=== PATIENT | female | born 1970 | race Caucasian/White ===

== ENCOUNTER 2020-09-22 09:00 | Emergency (ER) | payer BC ==
--- OUTSIDE RECORDS SUMMARY | 2020-09-22 09:03 | XMS REPORT | Continuity of Care Document ---
:1970 Author Organization [facility] t Address [address] [place] [address] Care Team Providers Name Role Phone Unavailable Unavailable Unavailable Problems This patient has no known problems. Allergies, Adverse Reactions, Alerts This patient has no known allergies or adverse reactions. Medications Ordered Filled Start Stop Current Ordering Indication Dosage Frequency Signature Comments Components Source Medication Medication Date Date Medication? Clinician (SIG) Name Name Praluent Praluent 2020-0 2020- No Na Guadalupe as [facility] 7[facility]27 10-25 [facility] Neomycin-Po Neomycin-Po 0 Yes Na Guadalupe [address] [facility] lymyxin-HC lymyxin-HC 2-20 into [place] - 00:00: affected [facility] 00 ear [facility] Augmentin Augmentin 0 Yes Na Guadalupe [address] [facility] 2-20 [facility] Advair Advair Yes Na Guadalupe INHALE [address] [facility] Diskus Diskus PUFF BY [facility] - MOUTH 2 [facility] TIMES l DAILY Outpat[facility] ent Clinics Metoprolol Metoprolol Yes Na Guadalupe [address] [facility] Tartrate Tartrate with food Mercedes kes - [facility] Ventolin Ventolin Yes Na Guadalupe [address] [facility] HFA HFA needed [facility] Fish Oil Fish Oil Yes Na Guadalupe [address] [facility] Aspirin Aspirin Yes Na Guadalupe [address] [facility] Lisinopril Lisinopril Yes Na Guadalupe [address] [facility] Singulair Singulair Yes Na Guadalupe [address] [facility] Yes Na Guadalupe [address] [facility] Sodium Sodium [facility] Plavix Plavix Yes Na Guadalupe [address] [facility] Bactrim DS Bactrim DS Yes Na Guadalupe [address] [facility] Vitamin Vitamin Yes Na Guadalupe [address] B-12 B-12 [facility] Vitamin D Vitamin D Yes Na Guadalupe [address] [facility] (Ergocalcif (Ergocalcif L ukes - nicho) nicho) [facility] Humira Humira Yes Na Guadalupe 0.[address] [facility] Dymista Dymista Yes Na Guadalupe [address] [facility] Nitroglycer Nitroglycer Yes Na Guadalupe not [facility] in in defined [facility] Clobetasol Clobetasol Yes Na Guadalupe [address] [facility] Propionate Propionate applicatio [facility] n to [facility] affected l area Outpati ent Clinics Repatha Repatha 2020- No Na Guadalupe INJECT [address] SureClick SureClick 06-30 [facility] - 00:00 S [facility] :00 SUBCUTANEO l USLY ONCE Outpati EVERY 2 ent WEEKS Clinics Immunizations Ordered Filled Immunization Date Status Comments [facility] e Immunization Name Name Afluria single dose Afluria single dose 2019-02-[address] [facility]00 [facility] Procedures This patient has no known procedures. Encounters Start End Encounter Admission Attending Care Care Encounter Source Date/Time Date/Time Type Type Clinicians Facility Department ID 2020-08-18 2020-08-18 Outpatient [facility] [id number] [facility] 2020-08-15 2020-08-15 Outpatient [facility] [id number] [facility] 2020-08-15 2020-08-15 Outpatient [facility] [id number] [facility] 2020-08-14 2020-08-14 Outpatient [facility] [id number] [facility] 2020-07-21 2020-07-21 Outpatient [facility] [id number] [facility] 2020-04-07 2020-04-07 Outpatient [facility] [id number] [facility] 2020-04-07 2020-04-07 Outpatient [facility] [id number] [facility] 2020-01-01 2020-01-01 Outpatient [facility] [id number] [facility] 2019-10-01 2019-10-01 [facility] [id number] [facility] 15:20:00 15:20:00 t [place] [employer] - [facility] Medicine Outpati ent Clinics 2019-08-28 2019-08-28 [facility] [id number] [address] 10:07:00 10:07:00 t [place] [employer] - Drive [facility] Out[facility] Clin[facility] 2019-06-07 2019-06-07 [facility] [id number] [address] 15:40:00 15:40:00 t [place] [employer] - Drive [facility] Out[facility] Clin[facility] 2019-03-21 2019-03-21 [facility] [id number] 14:54:00 14:54:00 t [place] [employer] - Drive [facility] Out[facility] Clinics 2019-02-05 2019-02-05 [facility] [id number] 15:00:00 15:00:00 t N[place] [employer] Luke s - Drive [facility] Medicine l Medicine Outpati ent Clinics 2019-01-06 2019-01-06 [facility] [id number] 16:28:00 16:28:00 t [place] [employer] s - Drive [facility] Medicine Outpati ent Clinics 2018-11-29 2018-11-29 [facility] [id number] 16:26:00 16:26:00 t [place] [employer] s - Drive [facility] Medicine l Medicine Outpati ent Clinics 2018-10-27 2018-10-27 [facility] [id number] 14:20:00 14:20:00 t [place] [employer] - Drive [facility] Medicine l Medicine Outpati ent Clinics 2018-10-18 2018-10-18 [facility] [id number] [facility] 11:28:00 11:28:00 t [place] [employer] - Drive [facility] Medicine Outpati ent Clinics 2018-04-14 2018-04-14 [facility] [id number] 08:00:00 08:00:00 t [place] [employer] s - Drive [facility] Medicine Outpati ent Clinics 2018-02-01 2018-02-01 [facility] [id number] 11:30:00 11:30:00 t [place]is [employer] [employer] [place] s - Drive [facility] Medicine Outpati ent Clinics 2017-12-18 2017-12-18 [facility] [id number] 10:24:00 10:24:00 t [place] [employer] - Drive [facility] Medicine Medicine Outpati ent Clinics 2017-11-25 2017-11-25 [facility] [id number] 10:45:00 10:45:00 t [place] [employer] s - Drive [facility] Medicine Outpati ent Clinics Results This patient has no known results.
[2020-09-22] MEDS ORDERED: CYCLOBENZAPRINE 10 MG TAB ONE (10:07)
[2020-09-22] MEDS ORDERED: KETOROLAC 30 MG/ML INJ ONE (10:08)
--- NOTE | 2020-09-22 10:08 | RAD REPORT ---
EXAM DESCRIPTION: RAD - Shoulder Right 2 View - 09/22/2020 10:02 am CLINICAL HISTORY: PAIN COMPARISON: No comparisons FINDINGS: No right shoulder fracture or dislocation. No significant focal degenerative changes. IMPRESSION: Unremarkable right shoulder.
--- NOTE | 2020-09-22 10:41 | ER ---
Nurse's Notes [facility] Name: Muna Zaidi Age: 49 yrs Sex: Female : 1970 Arrival Date: 09/22/2020 Time: 09: Bed DX2 Private MD: Angel Matthews Diagnosis: Pain in right shoulder Presentation: 09/22 09:29 Chief complaint: Patient states: Right shoulder pain x 1 week, intermittent, denies jl7 trauma, reports PCP told her to come here for x-rays. Coronavirus screen: Client denies travel out of the [place] in the last 14 days. At this time, the client does not indicate any symptoms associated with coronavirus-19. Ebola Screen: No symptoms or risks identified at this time. Initial Sepsis Screen: Does the patient meet any 2 criteria? No. Patient's initial sepsis screen is negative. Does the patient have a suspected source of infection? No. Patient's initial sepsis screen is negative. Risk Assessment: Do you want to hurt yourself or someone else? Patient reports no desire to harm self or others. Onset of symptoms was September 16, 2020. 09:29 Method Of Arrival: Ambulatory 7 09:29 Acuity: [place]IN[place] 4 jl7 Triage Assessment: 09:31 General: Appears in no apparent distress. uncomfortable, Behavior is calm, cooperative, jl7 appropriate for age. Pain: Complains of pain in anterior aspect of right shoulder Pain radiates to posterior aspect of right shoulder Pain currently is 3 out of 10 on a pain scale. at worst was 9 out of 10 on a pain scale. Quality of pain is described as throbbing, Pain began x 1 week Is intermittent. Neuro: Level of Consciousness is awake, alert, obeys commands, Oriented to person, place, time, situation. Cardiovascular: Denies chest pain, nausea, palpitations, shortness of breath, Patient's skin is warm and dry. Respiratory: Airway is patent Respiratory effort is even, unlabored, Respiratory pattern is regular, symmetrical. Derm: Skin is pink, warm \T\ dry. Musculoskeletal: Swelling absent Reports pain in anterior aspect of right shoulder. 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 - Social history:: Smoking status: Patient reports the use of cigarette tobacco products. Screenin:30 Abuse screen: Denies threats or abuse. Denies injuries from another. Nutritional jl7 screening: No deficits noted. Tuberculosis screening: No symptoms or risk factors identified. Fall Risk None identified. Assessment: 09:30 General: See triage assessment. jl7 10:30 Reassessment: Patient appears in no apparent distress at this time. No changes from jl7 previously documented assessment. Patient and/or family updated on plan of care and expected duration. Pain level reassessed. Patient is alert, oriented x 3, equal unlabored respirations, skin warm/dry/pink. Vital Signs: 09:29 BP 163 / 87; Pulse 87; Resp 17; Temp 98.6; Pulse Ox 100% on R/A; Weight 63.5 kg; Height jl7 5 ft. 3 in. (160.02 cm); Pain 3/10; 09:29 Body Mass Index 24.80 (63.50 kg, 160.02 cm) jl7 ED Course: 09:09 Patient arrived in ED. am2 09:10 Angel Matthews MD is Private Physician. am2 09:22 Bhavin Paul, DIOGENES is Primary Nurse. jl7 09:30 Patient has correct armband on for positive identification. Placed in gown. Bed in low jl7 position. Call light in reach. Side rails up X 1. 09:30 No provider procedures requiring assistance completed. Patient did not have IV access jl7 during this emergency room visit. 09:31 Triage completed. jl7 09:31 Arm band placed on right wrist. jl7 09:32 Kenny Rothman NP is PHCP. pm1 09:32 Carroll Diop MD is Attending Physician. pm1 09:39 Geoffrey Govea MD is Attending Physician. pm1 10:02 Shoulder Right (2 View) XRAY In Process Unspecified. EDMS Administered Medications: 09:51 Drug: Flexeril (cyclobenzaprine) 10 mg Route: PO; jl7 11:32 Follow up: Response: No adverse reaction jl7 09:51 Drug: Ketorolac 30 mg Route: IM; Site: left deltoid; jl7 11:32 Follow up: Response: No adverse reaction jl7 Outcome: 10:40 Discharge ordered by . pm1 11:33 Discharged to home ambulatory. jl7 11:33 Condition: stable 11:33 Discharge instructions given to patient, Instructed on discharge instructions, follow up and referral plans. medication usage, Demonstrated understanding of instructions, follow-up care, medications, Prescriptions given X 3. 11:33 Patient left the ED. jl7 Signatures: Dispatcher [employer] EDKenny Leon NP SYSTEM OPERATOR pm1 Bhavin Paul RN RN jl7 Yasmin Koehler am2
--- NOTE | 2020-09-22 10:41 | EDPHYS ---
Physician Documentation [facility] Name: Muna Zaidi Age: 49 yrs Sex: Female : 1970 Arrival Date: 09/22/2020 Time: 09:09 Bed DX2 Private MD: Angel Matthews ED Physician Geoffrey Govea HPI: 09/22 09:45 This 49 yrs old Female presents to ER via Ambulatory with complaints of Right pm1 Shoulder Pain. 09:45 The patient or guardian complains of pain, that is acute. The complaints affect the pm1 anterior aspect of right shoulder and posterior aspect of right shoulder. Context: The problem was sustained at home, resulted from injury while sleeping. Patient reports a popping sensation to right shoulder while positioning while sleeping and then she woke up with pain to the shoulder. Onset: The symptoms/episode began/occurred 1 week(s) ago. Treatment prior to arrival includes: over the counter medications, Heating pad. Modifying factors: The symptoms are alleviated by positioning arm. the symptoms are aggravated by Keeping right arm in one position for an extended time. Associated signs and symptoms: Pertinent negatives: decreased range of motion, deformity, numbness, swelling. Severity of symptoms: in the emergency department the symptoms are unchanged. The patient has not recently seen a physician, Patient attempted to schedule an appointment with her PCP but was unable to get an appointment. Was instructed to report to the ER for imaging. 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 - Social history:: Smoking status: Patient reports the use of cigarette tobacco products. ROS: 09:45 Constitutional: Negative for fever, chills, and weight loss, Cardiovascular: Negative pm1 for chest pain, palpitations, and edema, Respiratory: Negative for shortness of breath, cough, wheezing, and pleuritic chest pain, Abdomen/GI: Negative for abdominal pain, nausea, vomiting, diarrhea, and constipation, Back: Negative for injury and pain. 09:45 Skin: Negative for injury, rash, and discoloration, Neuro: Negative for headache, weakness, numbness, tingling, and seizure. 09:45 MS/extremity: Positive for pain, of the posterior aspect of right shoulder and anterior aspect of right shoulder, Negative for decreased range of motion, deformity. 09:45 All other systems are negative. Exam: 09:45 Constitutional: This is a well developed, well nourished patient who is awake, alert, pm1 and in no acute distress. 09:45 Head/Face: Normocephalic, atraumatic. 09:45 Chest/axilla: Normal chest wall appearance and motion. Nontender with no deformity. No lesions are appreciated. 09:45 Back: No spinal tenderness. No costovertebral tenderness. Full range of motion. Skin: Warm, dry with normal turgor. Normal color with no rashes, no lesions, and no evidence of cellulitis. 09:45 Neck: External neck: tenderness, that is mild, of the right trapezius, C-spine: vertebral tenderness, is not appreciated. 09:45 Cardiovascular: Rate: normal, Rhythm: regular, Pulses: no pulse deficits are appreciated, Heart sounds: normal, normal S1and S2. 09:45 Respiratory: Exam negative for acute changes, respiratory distress, shortness of breath, Breath sounds: are clear throughout. 09:45 Abdomen/GI: Inspection: abdomen appears normal, Palpation: abdomen is soft and non-tender, in all quadrants. 09:45 Musculoskeletal/extremity: Extremities: grossly normal except: noted in the posterior aspect of right shoulder and anterior aspect of right shoulder: pain reproduced with movement of right and improved with light massage to trapezius muscle. 09:45 Neuro: Exam negative for acute changes, Orientation: is normal, Mentation: is normal, Motor: is normal, moves all fours. Vital Signs: 09:29 BP 163 / 87; Pulse 87; Resp 17; Temp 98.6; Pulse Ox 100% on R/A; Weight 63.5 kg; Height jl7 5 ft. 3 in. (160.02 cm); Pain 3/10; 09:29 Body Mass Index 24.80 (63.50 kg, 160.02 cm) jl7 MDM: 09:40 Patient medically screened. pm1 10:39 Data reviewed: vital signs. Data interpreted: Pulse oximetry: on room air is 100 %. pm1 Interpretation: normal. Counseling: I had a detailed discussion with the patient and/or guardian regarding: the historical points, exam findings, and any diagnostic results supporting the discharge/admit diagnosis, radiology results, the need for outpatient follow up, to return to the emergency department if symptoms worsen or persist or if there are any questions or concerns that arise at home. 10:52 ED course: [place]MP[place] reviewed. Patient found without prescriptions. pm1 09/22 09:39 Order name: Shoulder Right (2 View) XRAY; Complete Time: 10:33 pm1 09/22 10:41 Order name: Sling; Complete Time: 11:31 pm1 Administered Medications: 09:51 Drug: Flexeril (cyclobenzaprine) 10 mg Route: PO; jl7 11:32 Follow up: Response: No adverse reaction jl7 09:51 Drug: Ketorolac 30 mg Route: IM; Site: left deltoid; jl7 11:32 Follow up: Response: No adverse reaction jl7 Disposition: 14:17 Co-signature as Attending Physician, Geoffrey Govea MD I agree with the assessment and kdr plan of care. Disposition Summary: 09/22/20 10:40 Discharge Ordered Location: Home pm1 Problem: new pm1 Symptoms: have improved pm1 Condition: Stable pm1 Diagnosis - Pain in right shoulder pm1 Followup: pm1 - With: Emergency Department - When: As needed - Reason: Worsening of condition Followup: pm1 - With: Private Physician - When: 2 - 3 days - Reason: Recheck today's complaints, Continuance of care, Re-evaluation by your physician Discharge Instructions: - Discharge Summary Sheet pm1 - Shoulder Pain pm1 - How to Use a Sling pm1 Forms: - Medication Reconciliation Form pm1 - Thank You Letter pm1 - Antibiotic Education pm1 - Prescription Opioid Use pm1 - Work release form mt Prescriptions: - Cyclobenzaprine 10 mg Oral Tablet - take 1 tablet by ORAL route every 8 hours As needed; 30 tablet; Refills: 0, pm1 Product Selection Permitted - Diclofenac Sodium 75 mg Oral tablet,delayed release (DR/EC) - take 1 tablet by ORAL route 2 times per day As needed; 30 tablet; Refills: 0, pm1 Product Selection Permitted - acetaminophen-codeine 300-15 mg Oral tablet - take 2 tablet by ORAL route every 6 hours As needed; 20 tablet; Refills: 0, pm1 Product Selection Permitted Signatures: Dispatcher [employer] Geoffrey Varela MD MD kdr Kenny Rothman, JOAN CHIEF RADIATION THERAPIST pm1 Bhavin Paul RN RN jl7
[2020-09-22 11:47] VITALS: BP 163/87; TEMP 98.6; O2SAT 100
== END 2020-09-22 11:33 | disposition home or self-care (01) ==
LOC: ER 09:00
DX: M25.511 Pain in right shoulder (principal); I10 Essential (primary) hypertension; F17.210 Nicotine dependence, cigarettes, uncomplicated
CPT/HCPCS: 96372; 99283